=== PATIENT | female | born 1935 | race Caucasian/White ===

== ENCOUNTER 2022-03-19 13:05 | Inpatient (IN) | payer OTHER ==
[2022-03-19] MEDS ORDERED: methylPREDNISolone NA SUCC 125 MG/2 ML VIAL IVPB ONE (13:39)
[2022-03-19] MEDS ORDERED: CEFTRIAXONE 1 GM in DEXTROSE 5%-WATER - 100 ML IVPB ONE (13:53)
[2022-03-19] MEDS ORDERED: AZITHROMYCIN IVPB 500 MG in DEXTROSE 5%-WATER - 250 ML IVPB ONE (13:53)
[2022-03-19] MEDS ORDERED: AZITHROMYCIN IVPB 500 MG/250 ML BAG IVPB ONE (14:07)
[2022-03-19] MEDS ORDERED: methylPREDNISolone NA SUCC 125 MG/2 ML VIAL ONE (14:13)
[2022-03-19] MEDS ORDERED: CEFTRIAXONE 1 GM/50 ML BAG ONE ×2 (14:13→14:16)
[2022-03-19] MEDS ORDERED: ALBUTEROL SO4 2.5/IPRATROPIUM 0.5 INH SOL 3 ML VIAL.NEB. NEB ONE (14:16)
[2022-03-19 14:17] LABS: VENOUS BASE EXCESS 6.2 mmol/L (-2-2); VENOUS PCO2 50.1 mmHg (38-52); VENOUS PH 7.42 (7.310-7.410)
[2022-03-19 14:19] LABS: BASO % 0.8 % (0-2.0); EOS % 7.1 % (0-4.5); HEMATOCRIT 31.9 % (32.4-45.2); HEMOGLOBIN 10.7 GM/dL (10.7-15.3); LYMPH % 9.5 % (8-40); MCH 25.7 pg (25.7-33.7); MCHC 33.6 g/dl (32.0-36.0); MEAN CELL VOLUME 76.3 fl (80-96); MONO % 9.1 % (3.8-10.2); NEUT % 73.5 % (42.8-82.8); PLATELET COUNT 410 10^3/uL (134-434); RBC 4.18 M/mm3 (3.60-5.2); RDW 15.6 % (11.6-15.6); WHITE BLOOD COUNT 11.5 K/mm3 (4.0-10.0)
[2022-03-19] MEDS: ALBUTEROL SO4 2.5/IPRATROPIUM 0.5 INH SOL 3 ML VIAL.NEB. NEB SCH ×2 (14:20→14:38)
[2022-03-19 14:23] LABS: INR 1.13 (0.83-1.09)
[2022-03-19 14:26] LABS: ACTIVATED PTT 31.6 SECONDS (25.2-36.5)
[2022-03-19 14:45] LABS: ALBUMIN 2.8 g/dl (3.4-5.0); BLOOD UREA NITROGEN 11.9 mg/dL (7-18); MAGNESIUM 2.5 mg/dL (1.8-2.4)
[2022-03-19 14:48] LABS: CREATININE 0.5 mg/dL (0.55-1.3)
[2022-03-19 14:49] LABS: BILIRUBIN,TOTAL 0.4 mg/dL (0.2-1); TOT PROT 5.9 g/dl (6.4-8.2)
[2022-03-19 14:53] LABS: N-TERMINAL BNP 677.7 pg/ml (5-450)
[2022-03-19] MEDS ORDERED: ALBUTEROL SO4 2.5/IPRATROPIUM 0.5 INH SOL 3 ML VIAL.NEB. NEB PRN (16:57)
[2022-03-19] MEDS ORDERED: LISINOPRIL 10 MG TABLET PO ONE (18:39)
[2022-03-19] MEDS ORDERED: THIAMINE HCL 100 MG TABLET (FP) ONE (21:06)
[2022-03-19] MEDS ORDERED: PANTOPRAZOLE 40 MG TABLET PO ONE (21:06)
[2022-03-19] MEDS ORDERED: LISINOPRIL 10 MG TABLET ONE (21:07)
[2022-03-19] MEDS ORDERED: ENOXAPARIN NA (PORCINE) 40 MG/0.4 ML DISP.SYRIN SQ ONE (21:07)
[2022-03-19] MEDS: ENOXAPARIN NA (PORCINE) 40 MG/0.4 ML DISP.SYRIN SQ SCH (21:14)
[2022-03-19] MEDS: PANTOPRAZOLE 40 MG TABLET PO SCH (21:14)
[2022-03-19] MEDS: THIAMINE HCL 100 MG TABLET (FP) PO SCH (21:14)
[2022-03-19] MEDS: TRIAMCINOLONE ACET 0.025% CREAM 15 GM TUBE TP SCH (22:55)
[2022-03-19] MEDS: QUEtiapine FUMARATE 25 MG TABLET PO SCH (22:55)
[2022-03-20 03:01] VITALS: BMI 19.5
[2022-03-20] MEDS: CYANOCOBALAMIN 1,000 MCG TABLET (FP) PO SCH ×2 (03:08→11:13)
[2022-03-20] MEDS: LEVOTHYROXINE NA 25 MCG TABLET (FP) PO SCH (06:06)
[2022-03-20 10:39] LABS: BLOOD UREA NITROGEN 15.6 mg/dL (7-18)
[2022-03-20 10:43] LABS: CREATININE 0.6 mg/dL (0.55-1.3)
[2022-03-20] MEDS ORDERED: cefTRIAXone SODIUM 1 GM VIAL ONE (11:07)
[2022-03-20] MEDS ORDERED: DEXTROSE 5%-WATER - 50 ML IVPB ONE (11:08)
[2022-03-20] MEDS: ENOXAPARIN NA (PORCINE) 40 MG/0.4 ML DISP.SYRIN SQ SCH (11:13)
[2022-03-20] MEDS: CEFTRIAXONE 1 GM in DEXTROSE 5%-WATER - 50 ML IVPB SCH (11:13)
[2022-03-20] MEDS: THIAMINE HCL 100 MG TABLET (FP) PO SCH (11:14)
[2022-03-20] MEDS: PANTOPRAZOLE 40 MG TABLET PO SCH (11:14)
[2022-03-20] MEDS: AZITHROMYCIN IVPB 500 MG/250 ML BAG IVPB SCH (11:15)
[2022-03-20] MEDS: LISINOPRIL 10 MG TABLET PO SCH (11:19)
[2022-03-20] MEDS ORDERED: IRON SUCROSE INJECTION 300 MG in SODIUM CHLORIDE 235 ML IVPB ONE (14:00)
[2022-03-20 14:25] LABS: BASO % 0.4 % (0-2.0); EOS % 0.2 % (0-4.5); HEMATOCRIT 30.5 % (32.4-45.2); HEMOGLOBIN 10.2 GM/dL (10.7-15.3); LYMPH % 9.9 % (8-40); MCH 25.6 pg (25.7-33.7); MCHC 33.5 g/dl (32.0-36.0); MEAN CELL VOLUME 76.5 fl (80-96); MEAN PLT VOLUME 7.7 fl (7.5-11.1); MONO % 7.3 % (3.8-10.2); NEUT % 82.2 % (42.8-82.8); PLATELET COUNT 414 10^3/uL (134-434); RBC 3.98 M/mm3 (3.60-5.2); RDW 15.9 % (11.6-15.6); WHITE BLOOD COUNT 7.7 K/mm3 (4.0-10.0)
[2022-03-20] MEDS: TRIAMCINOLONE ACET 0.025% CREAM 15 GM TUBE TP SCH ×2 (16:51→21:08)
[2022-03-20 17:41] LABS: BF WBC & OTHER NUCLEATED CELLS 2089 /mm3; BODY FLUID MACROPHAGES 18 %; BODY FLUID MESOTHELIAL 3 %; BODY FLUID MONOCYTE 17 %; BODYL FLD EOSINOPHIL 6 %
[2022-03-20] MEDS: QUEtiapine FUMARATE 25 MG TABLET PO SCH (21:07)
[2022-03-21] MEDS: LEVOTHYROXINE NA 25 MCG TABLET (FP) PO SCH (06:02)
[2022-03-21] MEDS ORDERED: DEXTROSE 5%-WATER - 50 ML IVPB ONE (08:54)
[2022-03-21] MEDS ORDERED: cefTRIAXone SODIUM 1 GM VIAL ONE (08:54)
[2022-03-21 08:57] LABS: BASO % 1.3 % (0-2.0); EOS % 9.7 % (0-4.5); HEMATOCRIT 31.3 % (32.4-45.2); HEMOGLOBIN 10.4 GM/dL (10.7-15.3); MCH 25.3 pg (25.7-33.7); MCHC 33.1 g/dl (32.0-36.0); MEAN CELL VOLUME 76.4 fl (80-96); MEAN PLT VOLUME 7.5 fl (7.5-11.1); PLATELET COUNT 443 10^3/uL (134-434); RDW 16.1 % (11.6-15.6); WHITE BLOOD COUNT 11.8 K/mm3 (4.0-10.0)
[2022-03-21] MEDS: PANTOPRAZOLE 40 MG TABLET PO SCH (09:28)
[2022-03-21] MEDS: CEFTRIAXONE 1 GM in DEXTROSE 5%-WATER - 50 ML IVPB SCH (09:28)
[2022-03-21] MEDS: ENOXAPARIN NA (PORCINE) 40 MG/0.4 ML DISP.SYRIN SQ SCH (09:28)
[2022-03-21] MEDS: THIAMINE HCL 100 MG TABLET (FP) PO SCH (09:28)
[2022-03-21] MEDS: CYANOCOBALAMIN 1,000 MCG TABLET (FP) PO SCH (09:28)
[2022-03-21] MEDS: LISINOPRIL 10 MG TABLET PO SCH (09:37)
[2022-03-21] MEDS: AZITHROMYCIN IVPB 500 MG/250 ML BAG IVPB SCH (10:07)
[2022-03-21] MEDS: TRIAMCINOLONE ACET 0.025% CREAM 15 GM TUBE TP SCH ×2 (10:07→21:03)
[2022-03-21] MEDS: QUEtiapine FUMARATE 25 MG TABLET PO SCH (21:00)
[2022-03-22] MEDS: LEVOTHYROXINE NA 25 MCG TABLET (FP) PO SCH (06:17)
[2022-03-22 08:49] LABS: BASO % 1.2 % (0-2.0); EOS % 9.9 % (0-4.5); HEMATOCRIT 31.1 % (32.4-45.2); HEMOGLOBIN 10.4 GM/dL (10.7-15.3); LYMPH % 10.9 % (8-40); MCH 25.5 pg (25.7-33.7); MCHC 33.5 g/dl (32.0-36.0); MEAN CELL VOLUME 76.2 fl (80-96); MEAN PLT VOLUME 7.4 fl (7.5-11.1); MONO % 8.3 % (3.8-10.2); NEUT % 69.7 % (42.8-82.8); PLATELET COUNT 422 10^3/uL (134-434); RBC 4.08 M/mm3 (3.60-5.2); RDW 15.9 % (11.6-15.6); WHITE BLOOD COUNT 11.5 K/mm3 (4.0-10.0)
[2022-03-22] MEDS ORDERED: DEXTROSE 5%-WATER - 50 ML IVPB ONE (09:34)
[2022-03-22] MEDS ORDERED: cefTRIAXone SODIUM 1 GM VIAL ONE (09:34)
[2022-03-22] MEDS: PANTOPRAZOLE 40 MG TABLET PO SCH (09:39)
[2022-03-22] MEDS: CYANOCOBALAMIN 1,000 MCG TABLET (FP) PO SCH (09:39)
[2022-03-22] MEDS: THIAMINE HCL 100 MG TABLET (FP) PO SCH (09:39)
[2022-03-22] MEDS: ENOXAPARIN NA (PORCINE) 40 MG/0.4 ML DISP.SYRIN SQ SCH (09:39)
[2022-03-22] MEDS: LISINOPRIL 10 MG TABLET PO SCH (09:39)
[2022-03-22] MEDS: CEFTRIAXONE 1 GM in DEXTROSE 5%-WATER - 50 ML IVPB SCH (09:40)
[2022-03-22] MEDS: TRIAMCINOLONE ACET 0.025% CREAM 15 GM TUBE TP SCH ×2 (14:24→21:48)
[2022-03-22] MEDS: QUEtiapine FUMARATE 25 MG TABLET PO SCH (21:46)
[2022-03-23] MEDS: LEVOTHYROXINE NA 25 MCG TABLET (FP) PO SCH (06:26)
[2022-03-23 08:41] LABS: BASO % 1.4 % (0-2.0); HEMATOCRIT 34.2 % (32.4-45.2); LYMPH % 10.7 % (8-40); MCH 24.7 pg (25.7-33.7); MCHC 32.2 g/dl (32.0-36.0); MEAN CELL VOLUME 76.8 fl (80-96); MEAN PLT VOLUME 7.3 fl (7.5-11.1); MONO % 8.4 % (3.8-10.2); NEUT % 69.5 % (42.8-82.8); PLATELET COUNT 424 10^3/uL (134-434); RBC 4.46 M/mm3 (3.60-5.2); RDW 15.6 % (11.6-15.6)
[2022-03-23 09:04] LABS: CALCIUM 8.9 mg/dL (8.5-10.1)
[2022-03-23 09:05] LABS: BLOOD UREA NITROGEN 19.2 mg/dL (7-18)
[2022-03-23 09:08] LABS: CREATININE 0.5 mg/dL (0.55-1.3)
[2022-03-23] MEDS ORDERED: DEXTROSE 5%-WATER - 50 ML IVPB ONE (09:55)
[2022-03-23] MEDS ORDERED: cefTRIAXone SODIUM 1 GM VIAL ONE (09:55)
[2022-03-23] MEDS: LISINOPRIL 10 MG TABLET PO SCH (09:57)
[2022-03-23] MEDS: CEFTRIAXONE 1 GM in DEXTROSE 5%-WATER - 50 ML IVPB SCH (09:57)
[2022-03-23] MEDS: PANTOPRAZOLE 40 MG TABLET PO SCH (09:57)
[2022-03-23] MEDS: THIAMINE HCL 100 MG TABLET (FP) PO SCH (09:57)
[2022-03-23] MEDS: ENOXAPARIN NA (PORCINE) 40 MG/0.4 ML DISP.SYRIN SQ SCH (09:58)
[2022-03-23] MEDS: CYANOCOBALAMIN 1,000 MCG TABLET (FP) PO SCH (09:58)
[2022-03-23] MEDS: TRIAMCINOLONE ACET 0.025% CREAM 15 GM TUBE TP SCH ×2 (09:58→21:13)
[2022-03-23] MEDS: QUEtiapine FUMARATE 25 MG TABLET PO SCH (21:13)
[2022-03-24] MEDS: LEVOTHYROXINE NA 25 MCG TABLET (FP) PO SCH (06:29)
[2022-03-24 08:32] LABS: EOS % 7.5 % (0-4.5); HEMATOCRIT 32.2 % (32.4-45.2); HEMOGLOBIN 10.7 GM/dL (10.7-15.3); MCH 25.5 pg (25.7-33.7); MCHC 33.3 g/dl (32.0-36.0); MEAN CELL VOLUME 76.4 fl (80-96); MEAN PLT VOLUME 6.9 fl (7.5-11.1); MONO % 6.8 % (3.8-10.2); NEUT % 77.7 % (42.8-82.8); PLATELET COUNT 399 10^3/uL (134-434); RBC 4.21 M/mm3 (3.60-5.2); RDW 15.6 % (11.6-15.6); WHITE BLOOD COUNT 13.3 K/mm3 (4.0-10.0)
[2022-03-24] MEDS ORDERED: DEXTROSE 5%-WATER - 50 ML IVPB ONE (09:36)
[2022-03-24] MEDS ORDERED: cefTRIAXone SODIUM 1 GM VIAL ONE (09:36)
[2022-03-24] MEDS: CYANOCOBALAMIN 1,000 MCG TABLET (FP) PO SCH (09:39)
[2022-03-24] MEDS: THIAMINE HCL 100 MG TABLET (FP) PO SCH (09:39)
[2022-03-24] MEDS: PANTOPRAZOLE 40 MG TABLET PO SCH (09:39)
[2022-03-24] MEDS: LISINOPRIL 10 MG TABLET PO SCH (09:39)
[2022-03-24] MEDS: ENOXAPARIN NA (PORCINE) 40 MG/0.4 ML DISP.SYRIN SQ SCH (09:39)
[2022-03-24] MEDS: CEFTRIAXONE 1 GM in DEXTROSE 5%-WATER - 50 ML IVPB SCH (09:40)
[2022-03-24] MEDS: TRIAMCINOLONE ACET 0.025% CREAM 15 GM TUBE TP SCH ×2 (09:50→21:21)
[2022-03-24 10:27] LABS: ANISOCYTOSIS 0; HELMET CELLS 0; HOWELL-JOLLY BODIES 0; MACROCYTOSIS 0; OVALOCYTE 0; ROULEAU 0; SICKELED CELLS 0; TARGET CELLS 0; TEAR DROP CELLS 0; TOXIC GRANULATION 0
[2022-03-24] MEDS: QUEtiapine FUMARATE 25 MG TABLET PO SCH (21:21)
[2022-03-25 00:13] LABS: BODY FLUID ALBUMIN 2.2 g/dL (Not Estab.)
[2022-03-25] MEDS: LEVOTHYROXINE NA 25 MCG TABLET (FP) PO SCH (06:41)
[2022-03-25 08:35] LABS: BASO % 0.3 % (0-2.0); EOS % 8.5 % (0-4.5); HEMATOCRIT 32.8 % (32.4-45.2); HEMOGLOBIN 10.8 GM/dL (10.7-15.3); LYMPH % 11.3 % (8-40); MCH 25.3 pg (25.7-33.7); MEAN CELL VOLUME 76.9 fl (80-96); MEAN PLT VOLUME 7.5 fl (7.5-11.1); MONO % 10.7 % (3.8-10.2); NEUT % 69.2 % (42.8-82.8); PLATELET COUNT 395 10^3/uL (134-434); RBC 4.27 M/mm3 (3.60-5.2); WHITE BLOOD COUNT 10.2 K/mm3 (4.0-10.0)
[2022-03-25] MEDS ORDERED: cefTRIAXone SODIUM 1 GM VIAL ONE (09:13)
[2022-03-25] MEDS ORDERED: DEXTROSE 5%-WATER - 50 ML IVPB ONE (09:13)
[2022-03-25] MEDS: CEFTRIAXONE 1 GM in DEXTROSE 5%-WATER - 50 ML IVPB SCH (10:17)
[2022-03-25] MEDS: THIAMINE HCL 100 MG TABLET (FP) PO SCH (10:18)
[2022-03-25] MEDS: TRIAMCINOLONE ACET 0.025% CREAM 15 GM TUBE TP SCH ×2 (10:18→22:23)
[2022-03-25] MEDS: CYANOCOBALAMIN 1,000 MCG TABLET (FP) PO SCH (10:18)
[2022-03-25] MEDS: ENOXAPARIN NA (PORCINE) 40 MG/0.4 ML DISP.SYRIN SQ SCH (10:18)
[2022-03-25] MEDS: PANTOPRAZOLE 40 MG TABLET PO SCH (10:18)
[2022-03-25] MEDS: LISINOPRIL 10 MG TABLET PO SCH (10:18)
[2022-03-25] MEDS: QUEtiapine FUMARATE 25 MG TABLET PO SCH (22:23)
[2022-03-26] MEDS: LEVOTHYROXINE NA 25 MCG TABLET (FP) PO SCH (06:14)
[2022-03-26 09:49] LABS: BASO % 1.1 % (0-2.0); EOS % 7.7 % (0-4.5); HEMATOCRIT 31.2 % (32.4-45.2); HEMOGLOBIN 10.4 GM/dL (10.7-15.3); MCH 25.6 pg (25.7-33.7); MCHC 33.2 g/dl (32.0-36.0); MEAN CELL VOLUME 77.1 fl (80-96); MEAN PLT VOLUME 7.7 fl (7.5-11.1); NEUT % 68.2 % (42.8-82.8); PLATELET COUNT 401 10^3/uL (134-434); RBC 4.05 M/mm3 (3.60-5.2); RDW 16.3 % (11.6-15.6); WHITE BLOOD COUNT 9.9 K/mm3 (4.0-10.0)
[2022-03-26] MEDS ORDERED: DEXTROSE 5%-WATER - 50 ML IVPB ONE (10:55)
[2022-03-26] MEDS ORDERED: cefTRIAXone SODIUM 1 GM VIAL ONE (10:55)
[2022-03-26] MEDS: LISINOPRIL 10 MG TABLET PO SCH (11:09)
[2022-03-26] MEDS: PANTOPRAZOLE 40 MG TABLET PO SCH (11:09)
[2022-03-26] MEDS: CEFTRIAXONE 1 GM in DEXTROSE 5%-WATER - 50 ML IVPB SCH (11:10)
[2022-03-26] MEDS: CYANOCOBALAMIN 1,000 MCG TABLET (FP) PO SCH (11:10)
[2022-03-26] MEDS: THIAMINE HCL 100 MG TABLET (FP) PO SCH (11:10)
[2022-03-26] MEDS: ENOXAPARIN NA (PORCINE) 40 MG/0.4 ML DISP.SYRIN SQ SCH (11:11)
[2022-03-26] MEDS: TRIAMCINOLONE ACET 0.025% CREAM 15 GM TUBE TP SCH ×2 (11:12→22:03)
[2022-03-26] MEDS: QUEtiapine FUMARATE 25 MG TABLET PO SCH (22:03)
[2022-03-27] MEDS: LEVOTHYROXINE NA 25 MCG TABLET (FP) PO SCH (06:13)
[2022-03-27 09:05] LABS: BASO % 0.7 % (0-2.0); EOS % 8.5 % (0-4.5); HEMATOCRIT 29.7 % (32.4-45.2); LYMPH % 10.9 % (8-40); MCH 25.9 pg (25.7-33.7); MCHC 33.7 g/dl (32.0-36.0); MEAN PLT VOLUME 7.4 fl (7.5-11.1); MONO % 10.6 % (3.8-10.2); NEUT % 69.3 % (42.8-82.8); PLATELET COUNT 371 10^3/uL (134-434); RBC 3.86 M/mm3 (3.60-5.2); RDW 16.1 % (11.6-15.6); WHITE BLOOD COUNT 8.6 K/mm3 (4.0-10.0)
[2022-03-27] MEDS ORDERED: IRON SUCROSE INJECTION 300 MG in SODIUM CHLORIDE 235 ML IVPB ONE (10:35)
[2022-03-27] MEDS ORDERED: cefTRIAXone SODIUM 1 GM VIAL ONE (10:45)
[2022-03-27] MEDS ORDERED: DEXTROSE 5%-WATER - 50 ML IVPB ONE (10:45)
[2022-03-27] MEDS: LISINOPRIL 10 MG TABLET PO SCH (10:54)
[2022-03-27] MEDS: CEFTRIAXONE 1 GM in DEXTROSE 5%-WATER - 50 ML IVPB SCH (10:54)
[2022-03-27] MEDS: THIAMINE HCL 100 MG TABLET (FP) PO SCH (10:54)
[2022-03-27] MEDS: CYANOCOBALAMIN 1,000 MCG TABLET (FP) PO SCH (10:54)
[2022-03-27] MEDS: PANTOPRAZOLE 40 MG TABLET PO SCH (10:54)
[2022-03-27] MEDS: TRIAMCINOLONE ACET 0.025% CREAM 15 GM TUBE TP SCH ×2 (10:55→21:24)
[2022-03-27] MEDS: ACETAMINOPHEN 325 MG TABLET (FP) PO PRN (21:24)
[2022-03-27] MEDS: QUEtiapine FUMARATE 25 MG TABLET PO SCH (21:24)
[2022-03-28] MEDS: LEVOTHYROXINE NA 25 MCG TABLET (FP) PO SCH (06:15)
[2022-03-28] MEDS ORDERED: cefTRIAXone SODIUM 1 GM VIAL ONE (11:14)
[2022-03-28] MEDS ORDERED: DEXTROSE 5%-WATER - 50 ML IVPB ONE (11:15)
[2022-03-28] MEDS: CEFTRIAXONE 1 GM in DEXTROSE 5%-WATER - 50 ML IVPB SCH (11:19)
[2022-03-28] MEDS: LISINOPRIL 10 MG TABLET PO SCH (11:20)
[2022-03-28] MEDS: PANTOPRAZOLE 40 MG TABLET PO SCH (11:20)
[2022-03-28] MEDS: CYANOCOBALAMIN 1,000 MCG TABLET (FP) PO SCH (11:20)
[2022-03-28] MEDS: THIAMINE HCL 100 MG TABLET (FP) PO SCH (11:20)
[2022-03-28] MEDS: TRIAMCINOLONE ACET 0.025% CREAM 15 GM TUBE TP SCH ×2 (17:17→21:21)
[2022-03-28] MEDS: QUEtiapine FUMARATE 25 MG TABLET PO SCH (21:21)
[2022-03-28] MEDS: ACETAMINOPHEN 325 MG TABLET (FP) PO PRN (22:34)
[2022-03-29] MEDS: LEVOTHYROXINE NA 25 MCG TABLET (FP) PO SCH (06:06)
[2022-03-29] MEDS ORDERED: DEXTROSE 5%-WATER - 50 ML IVPB ONE (12:03)
[2022-03-29] MEDS ORDERED: cefTRIAXone SODIUM 1 GM VIAL ONE (12:03)
[2022-03-29] MEDS: CEFTRIAXONE 1 GM in DEXTROSE 5%-WATER - 50 ML IVPB SCH (12:07)
[2022-03-29] MEDS: LISINOPRIL 10 MG TABLET PO SCH (12:08)
[2022-03-29] MEDS: THIAMINE HCL 100 MG TABLET (FP) PO SCH (12:08)
[2022-03-29] MEDS: CYANOCOBALAMIN 1,000 MCG TABLET (FP) PO SCH (12:08)
[2022-03-29] MEDS: PANTOPRAZOLE 40 MG TABLET PO SCH (12:08)
[2022-03-29] MEDS: TRIAMCINOLONE ACET 0.025% CREAM 15 GM TUBE TP SCH (14:06)
[2022-03-29 14:23] VITALS: BP 99/50; PULSE 69; TEMP 98.3
== END 2022-03-29 18:50 | DRG 190 ==
LOC: JER 13:05 → JERBED 15:23 → J8W 21:53
PROVIDERS: ADMIT Internal Medicine; ATTEND Internal Medicine
PROC: 0W9G30Z Drainage of Peritoneal Cavity with Drainage Device, Percutaneous Approach (ICD-10-PCS; principal; 2022-03-20)
DX: J44.1 Chronic obstructive pulmonary disease with (acute) exacerbation (principal); J18.9 Pneumonia, unspecified organism; J91.0 Malignant pleural effusion; M48.54XA Collapsed vertebra, not elsewhere classified, thoracic region, initial encounter for fracture; R64 Cachexia; R04.2 Hemoptysis; Z68.1 Body mass index [BMI] 19.9 or less, adult; F03.90 Unspecified dementia, unspecified severity, without behavioral disturbance, psychotic disturbance, mood disturbance, and anxiety; R91.8 Other nonspecific abnormal finding of lung field; I10 Essential (primary) hypertension; D72.829 Elevated white blood cell count, unspecified; F41.9 Anxiety disorder, unspecified; D50.9 Iron deficiency anemia, unspecified; G47.00 Insomnia, unspecified
CPT/HCPCS: 0241U-QW; 32552; 32557; 36415; 71045-TC-FY; 71046-TC-FY; 71250-TC; 71260-TC; 80048; 80053; 82042; 82150; 82465; 82728; 82803; 82945; 83540; 83550; 83615; 83735; 83880; 83986; 84157; 84478; 84484; 85025; 85610; 85730; 86480; 87040; 87070; 87075; 87102; 87116; 87205; 87206; 87210; 87807; 87899; 88108; 88305-TC; 93005; 93010; 97116-GP; 97161-GP; 99285-25; C1729; C1769; C9803-CS; J1756; Q9967; U0003; U0005

== ENCOUNTER 2022-05-02 10:40 | Inpatient (IN) | payer OTHER ==
[2022-05-02 13:58] LABS: BASO % 0.9 % (0-2.0); HEMATOCRIT 33.9 % (32.4-45.2); HEMOGLOBIN 11.3 GM/dL (10.7-15.3); LYMPH % 14.2 % (8-40); MCH 26.5 pg (25.7-33.7); MCHC 33.3 g/dl (32.0-36.0); MEAN CELL VOLUME 79.6 fl (80-96); MEAN PLT VOLUME 7.9 fl (7.5-11.1); MONO % 6.9 % (3.8-10.2); PLATELET COUNT 382 10^3/uL (134-434); RBC 4.26 M/mm3 (3.60-5.2); RDW 17.5 % (11.6-15.6); WHITE BLOOD COUNT 9.1 K/mm3 (4.0-10.0)
[2022-05-02 14:21] LABS: CALCIUM 8.4 mg/dL (8.5-10.1)
[2022-05-02 14:23] LABS: BLOOD UREA NITROGEN 14.2 mg/dL (7-18)
[2022-05-02 14:25] LABS: CREATININE 0.5 mg/dL (0.55-1.3)
[2022-05-02 14:27] LABS: BILIRUBIN,TOTAL 0.4 mg/dL (0.2-1); TOT PROT 5.9 g/dl (6.4-8.2)
[2022-05-02 14:30] LABS: N-TERMINAL BNP 366.2 pg/ml (5-450)
[2022-05-02 15:54] LABS: ACTIVATED PTT 30.3 SECONDS (25.2-36.5); INR 1.03 (0.83-1.09); PROTHROMBIN TIME (PATIENT) 11.9 SEC (9.7-13.0)
[2022-05-02] MEDS ORDERED: VANCOMYCIN 1 GM in D5W (PRE-DOCKED) 1,000 MG/250 ML IVPB ONE (16:22)
[2022-05-02] MEDS ORDERED: PIPERACILLIN/TAZOB 3.375 GM 3.375 GM in DEXTROSE 5%-WATER - 50 ML IVPB ONE (16:23)
[2022-05-02] MEDS ORDERED: VANCOMYCIN 1 GRAM (PRE-DOCKED) 1,000 MG/250 ML BAG IVPB ONE (16:26)
[2022-05-02] MEDS ORDERED: PIPERACILLIN/TAZOB 3.375 GM 3.375 GM/50 ML BAG IVPB ONE (16:26)
[2022-05-02] MEDS ORDERED: ALBUTEROL SO4 2.5/IPRATROPIUM 0.5 INH SOL 3 ML VIAL.NEB. NEB PRN (18:09)
[2022-05-02] MEDS ORDERED: PANTOPRAZOLE 40 MG TABLET PO ONE (19:54)
[2022-05-02] MEDS: PANTOPRAZOLE 40 MG TABLET PO SCH (19:56)
[2022-05-02] MEDS: CYANOCOBALAMIN 1,000 MCG TABLET (FP) PO SCH (19:56)
[2022-05-02] MEDS: QUEtiapine FUMARATE 25 MG TABLET PO SCH (23:35)
[2022-05-03] MEDS: LEVOTHYROXINE NA 25 MCG TABLET (FP) PO SCH (06:34)
[2022-05-03] MEDS: MULTIVITAMINS THER W-MINERALS COMBO TABLET (FP) PO SCH (12:10)
[2022-05-03] MEDS: CYANOCOBALAMIN 1,000 MCG TABLET (FP) PO SCH (12:10)
[2022-05-03] MEDS: THIAMINE HCL 100 MG TABLET (FP) PO SCH (12:10)
[2022-05-03] MEDS: LISINOPRIL 10 MG TABLET PO SCH (12:10)
[2022-05-03] MEDS: PANTOPRAZOLE 40 MG TABLET PO SCH (12:10)
[2022-05-03] MEDS: AMMONIUM LACTATE 12% LOTION 225 GM BOTTLE TP PRN (12:11)
[2022-05-03] MEDS: DULoxetine HCL 30 MG CAPSULE.DR PO SCH (13:55)
[2022-05-03] MEDS: UMECLIDINIUM/VILANTEROL (ANORO) 62.5/25 MCG INHALER IH SCH (13:55)
[2022-05-03] MEDS: QUEtiapine FUMARATE 25 MG TABLET PO SCH ×2 (20:42→22:48)
[2022-05-04] MEDS: LEVOTHYROXINE NA 25 MCG TABLET (FP) PO SCH (06:46)
[2022-05-04] MEDS: CYANOCOBALAMIN 1,000 MCG TABLET (FP) PO SCH (09:00)
[2022-05-04] MEDS: PANTOPRAZOLE 40 MG TABLET PO SCH (09:00)
[2022-05-04] MEDS: THIAMINE HCL 100 MG TABLET (FP) PO SCH (09:00)
[2022-05-04] MEDS: MULTIVITAMINS THER W-MINERALS COMBO TABLET (FP) PO SCH (09:01)
[2022-05-04] MEDS: DULoxetine HCL 30 MG CAPSULE.DR PO SCH (09:01)
[2022-05-04] MEDS: LISINOPRIL 10 MG TABLET PO SCH (09:01)
[2022-05-04] MEDS: UMECLIDINIUM/VILANTEROL (ANORO) 62.5/25 MCG INHALER IH SCH (09:20)
[2022-05-04] MEDS: AMMONIUM LACTATE 12% LOTION 225 GM BOTTLE TP PRN (15:44)
[2022-05-04 21:10] VITALS: BMI 17.6
[2022-05-04] MEDS: QUEtiapine FUMARATE 25 MG TABLET PO SCH (22:14)
[2022-05-05] MEDS: LEVOTHYROXINE NA 25 MCG TABLET (FP) PO SCH (06:59)
[2022-05-05] MEDS: THIAMINE HCL 100 MG TABLET (FP) PO SCH (10:08)
[2022-05-05] MEDS: UMECLIDINIUM/VILANTEROL (ANORO) 62.5/25 MCG INHALER IH SCH (10:09)
[2022-05-05] MEDS: CYANOCOBALAMIN 1,000 MCG TABLET (FP) PO SCH (10:09)
[2022-05-05] MEDS: DULoxetine HCL 30 MG CAPSULE.DR PO SCH (10:09)
[2022-05-05] MEDS: LISINOPRIL 10 MG TABLET PO SCH (10:09)
[2022-05-05] MEDS: MULTIVITAMINS THER W-MINERALS COMBO TABLET (FP) PO SCH (10:09)
[2022-05-05] MEDS: PANTOPRAZOLE 40 MG TABLET PO SCH (10:09)
[2022-05-05] MEDS: QUEtiapine FUMARATE 25 MG TABLET PO SCH (21:03)
[2022-05-06] MEDS: LEVOTHYROXINE NA 25 MCG TABLET (FP) PO SCH (06:00)
[2022-05-06] MEDS: LISINOPRIL 10 MG TABLET PO SCH (10:07)
[2022-05-06] MEDS: PANTOPRAZOLE 40 MG TABLET PO SCH (10:07)
[2022-05-06] MEDS: MULTIVITAMINS THER W-MINERALS COMBO TABLET (FP) PO SCH (10:07)
[2022-05-06] MEDS: CYANOCOBALAMIN 1,000 MCG TABLET (FP) PO SCH (10:07)
[2022-05-06] MEDS: THIAMINE HCL 100 MG TABLET (FP) PO SCH (10:07)
[2022-05-06] MEDS: DULoxetine HCL 30 MG CAPSULE.DR PO SCH (10:07)
[2022-05-06] MEDS: UMECLIDINIUM/VILANTEROL (ANORO) 62.5/25 MCG INHALER IH SCH (10:08)
[2022-05-06 11:36] VITALS: BP 116/51; PULSE 72; TEMP 97.4
== END 2022-05-06 14:03 | disposition home or self-care (01) | DRG 181 ==
LOC: JER 10:40 → JERBED 16:49 → J5S 23:14
PROVIDERS: ADMIT Internal Medicine; ATTEND Internal Medicine
DX: D38.1 Neoplasm of uncertain behavior of trachea, bronchus and lung (principal); J91.0 Malignant pleural effusion; R04.2 Hemoptysis; F03.90 Unspecified dementia, unspecified severity, without behavioral disturbance, psychotic disturbance, mood disturbance, and anxiety; J43.9 Emphysema, unspecified; I10 Essential (primary) hypertension; F41.9 Anxiety disorder, unspecified; R91.8 Other nonspecific abnormal finding of lung field; Z95.0 Presence of cardiac pacemaker
CPT/HCPCS: 36415; 71045-TC-FY; 71250-TC; 76604; 80053; 83605; 83880; 85025; 85610; 85730; 86850; 86900; 86901; 87040; 93005; 93010; 97116-GP; 99285-25; C9803-CS; U0003; U0005

== ENCOUNTER 2022-09-03 18:14 | Inpatient (IN) | payer OTHER ==
[2022-09-03 18:40] VITALS: BMI 17.6
[2022-09-03] MEDS ORDERED: ALBUTEROL SO4 2.5/IPRATROPIUM 0.5 INH SOL 3 ML VIAL.NEB. NEB ONE (20:17)
[2022-09-03 20:23] LABS: BASO % 0.5 % (0-2.0); EOS % 0.8 % (0-4.5); HEMATOCRIT 25.2 % (32.4-45.2); HEMOGLOBIN 8.4 GM/dL (10.7-15.3); LYMPH % 3.6 % (8-40); MCH 25.9 pg (25.7-33.7); MCHC 33.5 g/dl (32.0-36.0); MEAN CELL VOLUME 77.3 fl (80-96); MEAN PLT VOLUME 6.9 fl (7.5-11.1); MONO % 8.5 % (3.8-10.2); NEUT % 86.6 % (42.8-82.8); PLATELET COUNT 427 10^3/uL (134-434); RBC 3.26 M/mm3 (3.60-5.2); RDW 16.8 % (11.6-15.6); WHITE BLOOD COUNT 13.6 K/mm3 (4.0-10.0)
[2022-09-03 20:26] LABS: VENOUS BASE EXCESS 5.7 mmol/L (-2-2); VENOUS O2 SATURATION 88.6 % (70-80); VENOUS PCO2 41.8 mmHg (38-52); VENOUS PH 7.471 (7.310-7.410)
[2022-09-03] MEDS: ALBUTEROL SO4 2.5/IPRATROPIUM 0.5 INH SOL 3 ML VIAL.NEB. NEB SCH ×4 (20:32→21:18)
[2022-09-03 20:44] LABS: CALCIUM 8.6 mg/dL (8.5-10.1)
[2022-09-03 20:45] LABS: ALBUMIN 2.2 g/dl (3.4-5.0); MAGNESIUM 2.2 mg/dL (1.8-2.4)
[2022-09-03 20:48] LABS: CREATININE 0.5 mg/dL (0.55-1.3)
[2022-09-03 20:50] LABS: BILIRUBIN,TOTAL 0.5 mg/dL (0.2-1); TOT PROT 5.3 g/dl (6.4-8.2)
[2022-09-03 20:53] LABS: N-TERMINAL BNP 1605.2 pg/ml (5-450)
[2022-09-03] MEDS ORDERED: VANCOMYCIN 1 GM in D5W (PRE-DOCKED) 1,000 MG/250 ML IVPB ONE (21:11)
[2022-09-03] MEDS ORDERED: PIPERACILLIN/TAZOB 4.5 GM 4.5 GM in DEXTROSE 5%-WATER 100 ML IVPB ONE (21:11)
[2022-09-03] MEDS ORDERED: PIPERACILLIN/TAZOB 4.5 GM 4.5 GM/100 ML BAG IVPB ONE (21:28)
[2022-09-04] MEDS ORDERED: ALBUTEROL SO4 2.5/IPRATROPIUM 0.5 INH SOL 3 ML VIAL.NEB. NEB PRN (06:01)
[2022-09-04 07:31] LABS: BASO % 0.5 % (0-2.0); EOS % 1.1 % (0-4.5); HEMATOCRIT 26.1 % (32.4-45.2); HEMOGLOBIN 8.8 GM/dL (10.7-15.3); LYMPH % 2.9 % (8-40); MCH 25.9 pg (25.7-33.7); MCHC 33.6 g/dl (32.0-36.0); MEAN PLT VOLUME 7.4 fl (7.5-11.1); MONO % 6.4 % (3.8-10.2); NEUT % 89.1 % (42.8-82.8); PLATELET COUNT 474 10^3/uL (134-434); RBC 3.39 M/mm3 (3.60-5.2); RDW 16.3 % (11.6-15.6); WHITE BLOOD COUNT 17.2 K/mm3 (4.0-10.0)
[2022-09-04 08:03] LABS: URINE APPEARANCE CLEAR; URINE BILIRUBIN NEGATIVE (NEGATIVE); URINE COLOR YELLOW; URINE GLUCOSE (UA) NEGATIVE (NEGATIVE); URINE KETONE TRACE (NEGATIVE); URINE LEUK ESTERASE NEGATIVE (NEGATIVE); URINE NITRITE NEGATIVE (NEGATIVE); URINE PROTEIN TRACE (NEGATIVE); URINE UROBILINOGEN 0.2 mg/dL (0.2-1.0)
[2022-09-04 08:11] LABS: CALCIUM 9.2 mg/dL (8.5-10.1)
[2022-09-04 08:15] LABS: CREATININE 0.5 mg/dL (0.55-1.3)
[2022-09-04] MEDS ORDERED: TIOTROPIUM BROMIDE 2.5 MCG (SPIRIVA) RESPIMAT INHALER IH SCH (10:00)
[2022-09-04] MEDS ORDERED: DULoxetine HCL 60 MG CAPSULE.DR PO SCH (10:00)
[2022-09-04] MEDS ORDERED: PIPERACILLIN/TAZOB 3.375 GM 3.375 GM in DEXTROSE 5%-WATER - 50 ML IVPB SCH (10:00)
[2022-09-04] MEDS ORDERED: LEVOTHYROXINE NA 25 MCG TABLET (FP) ONE (10:29)
[2022-09-04] MEDS ORDERED: THIAMINE HCL 100 MG TABLET (FP) ONE (10:29)
[2022-09-04] MEDS ORDERED: DULoxetine HCL 30 MG CAPSULE.DR PO ONE (10:29)
[2022-09-04] MEDS ORDERED: PIPERACILLIN/TAZOB 3.375 GM 3.375 GM/50 ML BAG IVPB ONE ×2 (10:29→17:55)
[2022-09-04] MEDS: CYANOCOBALAMIN 1,000 MCG TABLET (FP) PO SCH (10:49)
[2022-09-04] MEDS: LEVOTHYROXINE NA 25 MCG TABLET (FP) PO SCH (10:49)
[2022-09-04] MEDS: THIAMINE HCL 100 MG TABLET (FP) PO SCH (10:49)
[2022-09-04] MEDS ORDERED: ALBUTEROL SO4 2.5/IPRATROPIUM 0.5 INH SOL 3 ML VIAL.NEB. NEB ONE ×4 (14:40→22:20)
[2022-09-04] MEDS ORDERED: methylPREDNISolone NA SUCC 40 MG/1 ML VIAL IVPUSH ONE (14:44)
[2022-09-04] MEDS ORDERED: methylPREDNISolone NA SUCC 40 MG/1 ML VIAL ONE ×2 (15:10→17:54)
[2022-09-04] MEDS ORDERED: methylPREDNISolone NA SUCC 40 MG/1 ML VIAL IVPUSH SCH (18:00)
[2022-09-04] MEDS: ALBUTEROL SO4 2.5/IPRATROPIUM 0.5 INH SOL 3 ML VIAL.NEB. NEB SCH ×2 (18:10→22:56)
[2022-09-04] MEDS: methylPREDNISolone NA SUCC 40 MG/1 ML VIAL IVPUSH SCH (18:10)
[2022-09-04] MEDS: PIPERACILLIN/TAZOB 3.375 GM 3.375 GM in DEXTROSE 5%-WATER - 50 ML IVPB SCH (18:10)
[2022-09-04] MEDS ORDERED: VANCOMYCIN/WATER FOR INJ (PEG) 750 MG/150 ML BAG IVPB SCH (21:00)
[2022-09-04] MEDS ORDERED: VANCOMYCIN 750 MG in DEXTROSE 5%-WATER - 150 ML IVPB SCH (22:00)
[2022-09-04] MEDS ORDERED: HEPARIN NA (PORCINE) 5,000 UNITS/ML 1ML VIAL ONE (22:20)
[2022-09-04] MEDS ORDERED: QUEtiapine FUMARATE 25 MG TABLET ONE (22:20)
[2022-09-04] MEDS: QUEtiapine FUMARATE 25 MG TABLET PO SCH (22:57)
[2022-09-04] MEDS: HEPARIN NA (PORCINE) 5,000 UNITS/ML 1ML VIAL SQ SCH (22:57)
[2022-09-05] MEDS ORDERED: PIPERACILLIN/TAZOB 3.375 GM 3.375 GM/50 ML BAG IVPB ONE (01:15)
[2022-09-05] MEDS ORDERED: methylPREDNISolone NA SUCC 40 MG/1 ML VIAL ONE (01:16)
[2022-09-05] MEDS: PIPERACILLIN/TAZOB 3.375 GM 3.375 GM in DEXTROSE 5%-WATER - 50 ML IVPB SCH ×3 (01:28→18:48)
[2022-09-05] MEDS: methylPREDNISolone NA SUCC 40 MG/1 ML VIAL IVPUSH SCH ×3 (01:28→18:49)
[2022-09-05] MEDS: LEVOTHYROXINE NA 25 MCG TABLET (FP) PO SCH (06:36)
[2022-09-05] MEDS: ALBUTEROL SO4 2.5/IPRATROPIUM 0.5 INH SOL 3 ML VIAL.NEB. NEB SCH ×4 (07:45→20:13)
[2022-09-05 09:30] LABS: HEMATOCRIT 25.4 % (32.4-45.2); HEMOGLOBIN 8.4 GM/dL (10.7-15.3); MCH 25.4 pg (25.7-33.7); MCHC 32.9 g/dl (32.0-36.0); MEAN CELL VOLUME 77.4 fl (80-96); MEAN PLT VOLUME 7.3 fl (7.5-11.1); PLATELET COUNT 526 10^3/uL (134-434); RBC 3.28 M/mm3 (3.60-5.2); RDW 16.5 % (11.6-15.6); WHITE BLOOD COUNT 11.2 K/mm3 (4.0-10.0)
[2022-09-05 09:52] LABS: ALBUMIN 2.2 g/dl (3.4-5.0); BLOOD UREA NITROGEN 19.5 mg/dL (7-18)
[2022-09-05 09:55] LABS: MAGNESIUM 2.6 mg/dL (1.8-2.4)
[2022-09-05 09:58] LABS: CREATININE 0.5 mg/dL (0.55-1.3)
[2022-09-05 10:00] LABS: BILIRUBIN,TOTAL 0.4 mg/dL (0.2-1); TOT PROT 5.5 g/dl (6.4-8.2)
[2022-09-05] MEDS: THIAMINE HCL 100 MG TABLET (FP) PO SCH (10:16)
[2022-09-05] MEDS: DULoxetine HCL 30 MG CAPSULE.DR PO SCH (10:16)
[2022-09-05] MEDS: CYANOCOBALAMIN 1,000 MCG TABLET (FP) PO SCH (10:16)
[2022-09-05] MEDS: HEPARIN NA (PORCINE) 5,000 UNITS/ML 1ML VIAL SQ SCH ×2 (10:17→23:28)
[2022-09-05 13:26] LABS: ANISOCYTOSIS 3+; MACROCYTOSIS 0
[2022-09-05] MEDS: QUEtiapine FUMARATE 25 MG TABLET PO SCH (23:30)
[2022-09-06] MEDS: methylPREDNISolone NA SUCC 40 MG/1 ML VIAL IVPUSH SCH ×3 (01:24→17:58)
[2022-09-06] MEDS: PIPERACILLIN/TAZOB 3.375 GM 3.375 GM in DEXTROSE 5%-WATER - 50 ML IVPB SCH ×3 (01:29→18:29)
[2022-09-06] MEDS: LEVOTHYROXINE NA 25 MCG TABLET (FP) PO SCH (06:22)
[2022-09-06 07:39] LABS: CALCIUM 8.8 mg/dL (8.5-10.1)
[2022-09-06 07:40] LABS: ALBUMIN 2.2 g/dl (3.4-5.0); BLOOD UREA NITROGEN 27.5 mg/dL (7-18); MAGNESIUM 2.6 mg/dL (1.8-2.4)
[2022-09-06 07:41] LABS: HEMATOCRIT 26.6 % (32.4-45.2); HEMOGLOBIN 8.6 GM/dL (10.7-15.3); MCH 25.1 pg (25.7-33.7); MCHC 32.5 g/dl (32.0-36.0); MEAN CELL VOLUME 77.1 fl (80-96); PLATELET COUNT 569 10^3/uL (134-434); RBC 3.45 M/mm3 (3.60-5.2); RDW 16.7 % (11.6-15.6)
[2022-09-06 07:42] LABS: CREATININE 0.6 mg/dL (0.55-1.3)
[2022-09-06 07:44] LABS: TOT PROT 5.6 g/dl (6.4-8.2)
[2022-09-06 07:45] LABS: BILIRUBIN,TOTAL 0.3 mg/dL (0.2-1)
[2022-09-06] MEDS: ALBUTEROL SO4 2.5/IPRATROPIUM 0.5 INH SOL 3 ML VIAL.NEB. NEB SCH ×4 (07:51→20:05)
[2022-09-06 09:32] LABS: ANISOCYTOSIS 3+; MACROCYTOSIS 0
[2022-09-06] MEDS: THIAMINE HCL 100 MG TABLET (FP) PO SCH (10:55)
[2022-09-06] MEDS: DULoxetine HCL 30 MG CAPSULE.DR PO SCH (10:55)
[2022-09-06] MEDS: CYANOCOBALAMIN 1,000 MCG TABLET (FP) PO SCH (10:55)
[2022-09-06] MEDS: HEPARIN NA (PORCINE) 5,000 UNITS/ML 1ML VIAL SQ SCH ×2 (10:56→22:23)
[2022-09-06] MEDS: PANTOPRAZOLE 40 MG TABLET PO SCH (10:59)
[2022-09-06] MEDS: LORazepam 0.5 MG TABLET PO PRN (22:25)
[2022-09-06] MEDS: QUEtiapine FUMARATE 25 MG TABLET PO SCH (22:25)
[2022-09-07] MEDS: methylPREDNISolone NA SUCC 40 MG/1 ML VIAL IVPUSH SCH ×3 (01:39→22:23)
[2022-09-07] MEDS: PIPERACILLIN/TAZOB 3.375 GM 3.375 GM in DEXTROSE 5%-WATER - 50 ML IVPB SCH ×3 (01:42→17:14)
[2022-09-07] MEDS: LEVOTHYROXINE NA 25 MCG TABLET (FP) PO SCH (06:11)
[2022-09-07] MEDS: ALBUTEROL SO4 2.5/IPRATROPIUM 0.5 INH SOL 3 ML VIAL.NEB. NEB SCH ×4 (07:20→19:35)
[2022-09-07 08:50] LABS: HEMATOCRIT 28.7 % (32.4-45.2); HEMOGLOBIN 9.8 GM/dL (10.7-15.3); MCH 26.3 pg (25.7-33.7); MEAN CELL VOLUME 77.4 fl (80-96); MEAN PLT VOLUME 6.6 fl (7.5-11.1); PLATELET COUNT 586 10^3/uL (134-434); RBC 3.71 M/mm3 (3.60-5.2); RDW 16.4 % (11.6-15.6); WHITE BLOOD COUNT 19.8 K/mm3 (4.0-10.0)
[2022-09-07 09:12] LABS: ALBUMIN 2.4 g/dl (3.4-5.0); BLOOD UREA NITROGEN 30.8 mg/dL (7-18); CALCIUM 9.2 mg/dL (8.5-10.1)
[2022-09-07 09:13] LABS: MAGNESIUM 2.6 mg/dL (1.8-2.4)
[2022-09-07 09:15] LABS: CREATININE 0.6 mg/dL (0.55-1.3)
[2022-09-07 09:17] LABS: BILIRUBIN,TOTAL 0.5 mg/dL (0.2-1); TOT PROT 5.8 g/dl (6.4-8.2)
[2022-09-07 11:20] LABS: ANISOCYTOSIS 0; HELMET CELLS 0; HOWELL-JOLLY BODIES 0; MACROCYTOSIS 0; OVALOCYTE 0; ROULEAU 0; SICKELED CELLS 0; TARGET CELLS 0; TEAR DROP CELLS 0; TOXIC GRANULATION 0
[2022-09-07] MEDS: PANTOPRAZOLE 40 MG TABLET PO SCH (11:35)
[2022-09-07] MEDS: THIAMINE HCL 100 MG TABLET (FP) PO SCH (11:35)
[2022-09-07] MEDS: HEPARIN NA (PORCINE) 5,000 UNITS/ML 1ML VIAL SQ SCH ×2 (11:35→22:23)
[2022-09-07] MEDS: CYANOCOBALAMIN 1,000 MCG TABLET (FP) PO SCH (11:35)
[2022-09-07] MEDS: DULoxetine HCL 30 MG CAPSULE.DR PO SCH (11:35)
[2022-09-07] MEDS: QUEtiapine FUMARATE 25 MG TABLET PO SCH (22:23)
[2022-09-08] MEDS: PIPERACILLIN/TAZOB 3.375 GM 3.375 GM in DEXTROSE 5%-WATER - 50 ML IVPB SCH ×3 (01:50→17:15)
[2022-09-08] MEDS: LEVOTHYROXINE NA 25 MCG TABLET (FP) PO SCH (06:48)
[2022-09-08] MEDS: ALBUTEROL SO4 2.5/IPRATROPIUM 0.5 INH SOL 3 ML VIAL.NEB. NEB SCH ×4 (08:00→20:00)
[2022-09-08 08:21] LABS: HEMATOCRIT 30.9 % (32.4-45.2); HEMOGLOBIN 9.9 GM/dL (10.7-15.3); MCH 24.7 pg (25.7-33.7); MCHC 32.2 g/dl (32.0-36.0); MEAN CELL VOLUME 76.9 fl (80-96); MEAN PLT VOLUME 6.8 fl (7.5-11.1); PLATELET COUNT 605 10^3/uL (134-434); RBC 4.02 M/mm3 (3.60-5.2); RDW 16.9 % (11.6-15.6)
[2022-09-08 08:38] LABS: ALBUMIN 2.4 g/dl (3.4-5.0); CALCIUM 8.7 mg/dL (8.5-10.1); MAGNESIUM 2.7 mg/dL (1.8-2.4)
[2022-09-08 08:40] LABS: CREATININE 0.6 mg/dL (0.55-1.3)
[2022-09-08 08:42] LABS: BILIRUBIN,TOTAL 0.3 mg/dL (0.2-1); TOT PROT 5.5 g/dl (6.4-8.2)
[2022-09-08 08:51] LABS: BLOOD UREA NITROGEN 25.2 mg/dL (7-18)
[2022-09-08 09:37] LABS: ANISOCYTOSIS 0; HELMET CELLS 0; HOWELL-JOLLY BODIES 0; MACROCYTOSIS 0; OVALOCYTE 0; ROULEAU 0; SICKELED CELLS 0; TARGET CELLS 0; TEAR DROP CELLS 0; TOXIC GRANULATION 0
[2022-09-08] MEDS: methylPREDNISolone NA SUCC 40 MG/1 ML VIAL IVPUSH SCH ×2 (10:16→21:29)
[2022-09-08] MEDS: PANTOPRAZOLE 40 MG TABLET PO SCH (10:17)
[2022-09-08] MEDS: CYANOCOBALAMIN 1,000 MCG TABLET (FP) PO SCH (10:17)
[2022-09-08] MEDS: THIAMINE HCL 100 MG TABLET (FP) PO SCH (10:17)
[2022-09-08] MEDS: DULoxetine HCL 30 MG CAPSULE.DR PO SCH (10:17)
[2022-09-08] MEDS: HEPARIN NA (PORCINE) 5,000 UNITS/ML 1ML VIAL SQ SCH ×2 (10:17→21:29)
[2022-09-08] MEDS: QUEtiapine FUMARATE 25 MG TABLET PO SCH (21:29)
[2022-09-09] MEDS: PIPERACILLIN/TAZOB 3.375 GM 3.375 GM in DEXTROSE 5%-WATER - 50 ML IVPB SCH ×3 (02:59→17:31)
[2022-09-09] MEDS: LEVOTHYROXINE NA 25 MCG TABLET (FP) PO SCH (06:01)
[2022-09-09] MEDS: ALBUTEROL SO4 2.5/IPRATROPIUM 0.5 INH SOL 3 ML VIAL.NEB. NEB SCH ×4 (07:40→20:41)
[2022-09-09] MEDS: PANTOPRAZOLE 40 MG TABLET PO SCH (10:35)
[2022-09-09] MEDS: HEPARIN NA (PORCINE) 5,000 UNITS/ML 1ML VIAL SQ SCH ×2 (10:35→22:19)
[2022-09-09] MEDS: THIAMINE HCL 100 MG TABLET (FP) PO SCH (10:35)
[2022-09-09] MEDS: CYANOCOBALAMIN 1,000 MCG TABLET (FP) PO SCH (10:35)
[2022-09-09] MEDS: DULoxetine HCL 30 MG CAPSULE.DR PO SCH (10:35)
[2022-09-09] MEDS: methylPREDNISolone NA SUCC 40 MG/1 ML VIAL IVPUSH SCH ×2 (10:36→11:42)
[2022-09-09] MEDS: QUEtiapine FUMARATE 25 MG TABLET PO SCH (22:19)
[2022-09-09] MEDS: LORazepam 0.5 MG TABLET PO PRN (22:27)
[2022-09-10] MEDS: PIPERACILLIN/TAZOB 3.375 GM 3.375 GM in DEXTROSE 5%-WATER - 50 ML IVPB SCH ×3 (01:14→17:29)
[2022-09-10] MEDS ORDERED: BETHANECHOL CHLORIDE 10 MG TABLET PO SCH (06:00)
[2022-09-10] MEDS: LEVOTHYROXINE NA 25 MCG TABLET (FP) PO SCH (06:48)
[2022-09-10] MEDS: BETHANECHOL CHLORIDE 10 MG TABLET PO SCH ×3 (06:48→22:58)
[2022-09-10] MEDS: ALBUTEROL SO4 2.5/IPRATROPIUM 0.5 INH SOL 3 ML VIAL.NEB. NEB SCH ×4 (08:24→19:49)
[2022-09-10 09:34] LABS: HEMATOCRIT 32.1 % (32.4-45.2); HEMOGLOBIN 10.2 GM/dL (10.7-15.3); MCH 24.9 pg (25.7-33.7); MCHC 31.8 g/dl (32.0-36.0); MEAN CELL VOLUME 78.3 fl (80-96); PLATELET COUNT 551 10^3/uL (134-434); RDW 17.3 % (11.6-15.6); WHITE BLOOD COUNT 26.9 K/mm3 (4.0-10.0)
[2022-09-10 10:03] LABS: ALBUMIN 2.5 g/dl (3.4-5.0); BLOOD UREA NITROGEN 30.4 mg/dL (7-18); MAGNESIUM 2.6 mg/dL (1.8-2.4)
[2022-09-10 10:06] LABS: CREATININE 0.6 mg/dL (0.55-1.3)
[2022-09-10 10:07] LABS: BILIRUBIN,TOTAL 0.3 mg/dL (0.2-1); TOT PROT 5.3 g/dl (6.4-8.2)
[2022-09-10] MEDS: DULoxetine HCL 30 MG CAPSULE.DR PO SCH (10:07)
[2022-09-10] MEDS: PANTOPRAZOLE 40 MG TABLET PO SCH (10:07)
[2022-09-10] MEDS: methylPREDNISolone NA SUCC 40 MG/1 ML VIAL IVPUSH SCH (10:07)
[2022-09-10] MEDS: HEPARIN NA (PORCINE) 5,000 UNITS/ML 1ML VIAL SQ SCH ×2 (10:07→22:56)
[2022-09-10] MEDS: CYANOCOBALAMIN 1,000 MCG TABLET (FP) PO SCH (10:07)
[2022-09-10] MEDS: THIAMINE HCL 100 MG TABLET (FP) PO SCH (10:09)
[2022-09-10 10:33] LABS: ANISOCYTOSIS 1+; MACROCYTOSIS 0
[2022-09-10] MEDS: QUEtiapine FUMARATE 25 MG TABLET PO SCH (22:58)
[2022-09-11] MEDS: PIPERACILLIN/TAZOB 3.375 GM 3.375 GM in DEXTROSE 5%-WATER - 50 ML IVPB SCH ×2 (02:14→09:33)
[2022-09-11] MEDS: BETHANECHOL CHLORIDE 10 MG TABLET PO SCH ×3 (05:58→22:49)
[2022-09-11] MEDS: LEVOTHYROXINE NA 25 MCG TABLET (FP) PO SCH (06:00)
[2022-09-11] MEDS: ALBUTEROL SO4 2.5/IPRATROPIUM 0.5 INH SOL 3 ML VIAL.NEB. NEB SCH ×4 (08:17→20:22)
[2022-09-11] MEDS: AMINO ACIDS/PROTEIN HYDROLYS 30 ML LIQUID.PKT PO SCH (08:25)
[2022-09-11] MEDS: PANTOPRAZOLE 40 MG TABLET PO SCH (09:34)
[2022-09-11] MEDS: THIAMINE HCL 100 MG TABLET (FP) PO SCH (09:34)
[2022-09-11] MEDS: DULoxetine HCL 30 MG CAPSULE.DR PO SCH (09:34)
[2022-09-11] MEDS: HEPARIN NA (PORCINE) 5,000 UNITS/ML 1ML VIAL SQ SCH ×2 (09:34→22:48)
[2022-09-11] MEDS: CYANOCOBALAMIN 1,000 MCG TABLET (FP) PO SCH (09:34)
[2022-09-11] MEDS: predniSONE 20 MG TABLET (UD) PO SCH (09:36)
[2022-09-11] MEDS: MULTIVITAMINS (DAILY MVI) TABLET (FP) PO SCH (09:36)
[2022-09-11] MEDS: QUEtiapine FUMARATE 25 MG TABLET PO SCH (22:46)
[2022-09-11 23:33] VITALS: RESP 20
[2022-09-12] MEDS: LEVOTHYROXINE NA 25 MCG TABLET (FP) PO SCH (06:29)
[2022-09-12] MEDS: BETHANECHOL CHLORIDE 10 MG TABLET PO SCH ×3 (06:30→23:17)
[2022-09-12] MEDS: ALBUTEROL SO4 2.5/IPRATROPIUM 0.5 INH SOL 3 ML VIAL.NEB. NEB SCH ×5 (07:20→20:11)
[2022-09-12] MEDS: PANTOPRAZOLE 40 MG TABLET PO SCH (09:50)
[2022-09-12] MEDS: predniSONE 20 MG TABLET (UD) PO SCH (09:50)
[2022-09-12] MEDS: CYANOCOBALAMIN 1,000 MCG TABLET (FP) PO SCH (09:50)
[2022-09-12] MEDS: MULTIVITAMINS (DAILY MVI) TABLET (FP) PO SCH (09:50)
[2022-09-12] MEDS: AMINO ACIDS/PROTEIN HYDROLYS 30 ML LIQUID.PKT PO SCH (09:50)
[2022-09-12] MEDS: THIAMINE HCL 100 MG TABLET (FP) PO SCH (09:51)
[2022-09-12] MEDS: HEPARIN NA (PORCINE) 5,000 UNITS/ML 1ML VIAL SQ SCH ×2 (09:51→23:16)
[2022-09-12] MEDS: DULoxetine HCL 30 MG CAPSULE.DR PO SCH (09:51)
[2022-09-12] MEDS: QUEtiapine FUMARATE 25 MG TABLET PO SCH (23:17)
[2022-09-13] MEDS: LEVOTHYROXINE NA 25 MCG TABLET (FP) PO SCH (06:04)
[2022-09-13] MEDS: BETHANECHOL CHLORIDE 10 MG TABLET PO SCH (06:05)
[2022-09-13 06:20] VITALS: TEMP 97.5
[2022-09-13] MEDS: ALBUTEROL SO4 2.5/IPRATROPIUM 0.5 INH SOL 3 ML VIAL.NEB. NEB SCH (08:20)
[2022-09-13] MEDS: MULTIVITAMINS (DAILY MVI) TABLET (FP) PO SCH (09:53)
[2022-09-13] MEDS: AMINO ACIDS/PROTEIN HYDROLYS 30 ML LIQUID.PKT PO SCH (09:53)
[2022-09-13] MEDS: predniSONE 20 MG TABLET (UD) PO SCH (09:54)
[2022-09-13] MEDS: CYANOCOBALAMIN 1,000 MCG TABLET (FP) PO SCH (09:54)
[2022-09-13] MEDS: HEPARIN NA (PORCINE) 5,000 UNITS/ML 1ML VIAL SQ SCH (09:54)
[2022-09-13] MEDS: THIAMINE HCL 100 MG TABLET (FP) PO SCH (09:54)
[2022-09-13] MEDS: PANTOPRAZOLE 40 MG TABLET PO SCH (09:54)
[2022-09-13] MEDS ORDERED: DULoxetine HCL 30 MG CAPSULE.DR PO SCH (10:00)
[2022-09-13 10:48] VITALS: BP 113/62; PULSE 112
== END 2022-09-13 10:53 | DRG 193 ==
LOC: JER 18:14 → JERBED 21:14 → UNDOADMIN 21:14 → JERBED 09-04 00:38 → J7W 09-05 02:30
PROVIDERS: ADMIT Internal Medicine; ATTEND Internal Medicine
DX: J18.9 Pneumonia, unspecified organism (principal); E43 Unspecified severe protein-calorie malnutrition; J96.01 Acute respiratory failure with hypoxia; J44.1 Chronic obstructive pulmonary disease with (acute) exacerbation; Z68.1 Body mass index [BMI] 19.9 or less, adult; R64 Cachexia; F03.90 Unspecified dementia, unspecified severity, without behavioral disturbance, psychotic disturbance, mood disturbance, and anxiety; R91.8 Other nonspecific abnormal finding of lung field; E03.9 Hypothyroidism, unspecified; F41.8 Other specified anxiety disorders
CPT/HCPCS: 0241U-QW; 36415; 71045-TC-FY; 80048; 80053; 81003; 82803; 82962; 83735; 83880; 84484; 85025; 87040; 87086; 87899; 93005; 93010; 94010; 94640; 94761; 97116-GP; 99285-25; C9803-CS; J1644; U0003; U0005